=== PATIENT | female | born 1965 | race Caucasian/White ===

== ENCOUNTER 2021-06-17 04:20 | Inpatient (IN) ==
[2021-06-17] MEDS ORDERED: Azithromycin 500 MG in 0.9 % Sodium Chloride 250 ML IVPB ONE (04:33)
[2021-06-17] MEDS ORDERED: Albuterol Neb 7.5 MG, Ipratropium Neb 0.5 MG, Sodium Chloride for inhalation 9 ML IH ONE (04:33)
[2021-06-17] MEDS ORDERED: methylPREDNISolone 125 MG/2 ML VIAL IVP ONE (04:33)
[2021-06-17] MEDS ORDERED: cefTRIAXone 1,000 MG in 0.9 % Sodium Chloride Mini Bag 100 ML IVPB ONE (04:46)
[2021-06-17 05:17] LABS: Basophils # 0.1 K/mcL (0.0-0.2); Basophils % 0.7 %; Eosinophils % 0.1 %; Hematocrit 34.2 % (35.3-44.9); Hemoglobin 12.3 g/dL (11.5-15.4); Immature Granulocytes % 0.5 % (0-4); Lymphocytes # 0.7 K/mcL (0.6-4.6); Mean Corpuscular Volume 83.4 fL (83.0-100.0); Mean Platelet Volume 10.2 fL (9.4-12.4); Monocytes # 1.1 K/mcL (0.0-1.3); Monocytes % 9.1 %; Platelet Count 264 K/mcL (140-400); Red Cell Distribution Width 11.7 % (11.5-14.5); Segmented Neutrophils % 83.6 %; White Blood Count 11.9 K/mcL (4.3-11.1)
[2021-06-17 05:32] LABS: INR 1.3
[2021-06-17 05:35] LABS: Activated Partial Thrombo Time 25.7 Seconds (26.0-36.0)
[2021-06-17 05:40] LABS: Platelet Estimate Normal (Normal)
[2021-06-17] MEDS ORDERED: 0.9 % Sodium Chloride 2,000 ML IV ONE (05:41)
[2021-06-17 05:43] LABS: VBG HCO3 24 mEq/L (21-27); VBG PCO2 44 mmHg (41-51); VBG PH 7.34 pH Units (7.32-7.42); VBG PO2 29 mmHg (25-50)
[2021-06-17 05:44] LABS: Alanine Aminotransferase 17 Units/L (7-52); Alkaline Phosphatase 86 Units/L (34-104); Aspartate Amino Transferase 15 Units/L (13-39); BUN/Creatinine Ratio 38 (6-26); Bilirubin,Direct 0.5 mg/dL (0.0-0.2); Bilirubin,Indirect 0.5 mg/dL (0.0-1.0); Blood Urea Nitrogen 31 mg/dL (6-20); Calcium 8.3 mg/dL (8.6-10.3); Carbon Dioxide 23 mEq/L (23-29); Chloride 80 mEq/L (98-107); Globulin 3.1 g/dL (2.4-3.5); Glucose 150 mg/dL (70-105); Osmolality,Calculated 253 (280-300); Potassium 3.1 mEq/L (3.5-5.1); Sodium 117 mEq/L (136-145); Total Protein 6.1 g/dL (6.4-8.9); Troponin I 0.03 ng/mL (< 0.04); eGFR For African Americans > 60 (> 60); eGFR For Non-African Americans > 60 (> 60)
[2021-06-17 07:14] LABS: Influenza A PCR Negative (Negative); Influenza B PCR Negative (Negative); Resp. Syncytial Virus PCR Negative (Negative)
[2021-06-17 07:16] LABS: SARS-CoV-2 by PCR (In House) Negative (Negative)
[2021-06-17] MEDS ORDERED: Ondansetron 4 MG/2 ML VIAL IVP PRN (08:23)
[2021-06-17] MEDS ORDERED: Naloxone 0.4 MG/ML INJ IVP PRN (08:23)
[2021-06-17] MEDS ORDERED: Perflutren Lipid Microsphere 1.3 ML in 0.9 % Sodium Chloride 8.7 ML IVP PRN (08:25)
[2021-06-17 08:28] LABS: Sodium, Urine < 10.0 mEq/L
[2021-06-17] MEDS ORDERED: [UNRECOGNIZED DRUG - REMARK] PO SCH (09:00)
[2021-06-17] MEDS: Budesonide/Formoterol 160/4.5 1 PUFF INH IH SCH ×2 (09:14→23:00)
[2021-06-17] MEDS: Ipratropium/Albuterol Neb 3 ML IH SCH ×3 (09:15→23:00)
[2021-06-17 10:25] LABS: BUN/Creatinine Ratio 47 (6-26); Blood Urea Nitrogen 26 mg/dL (6-20); Calcium 7.8 mg/dL (8.6-10.3); Carbon Dioxide 21 mEq/L (23-29); Chloride 87 mEq/L (98-107); Glucose 140 mg/dL (70-105); Osmolality,Calculated 257 (280-300); Potassium 3.2 mEq/L (3.5-5.1); Sodium 120 mEq/L (136-145); eGFR For African Americans > 60 (> 60); eGFR For Non-African Americans > 60 (> 60)
[2021-06-17] MEDS ORDERED: 0.9 % Sodium Chloride 1,000 ML IVC SCH (10:30)
[2021-06-17] MEDS: OXcarbazepine 150 MG TABLET PO SCH ×2 (11:02→20:22)
[2021-06-17] MEDS: Multivit/Ca/Min/Fe/FA 1 TAB TABLET PO SCH (11:02)
[2021-06-17 13:00] LABS: Creatinine,Urine 33 mg/dL; Microalbum/Creatinine Ratio,Ur 85 mcg/mg (Less than 30); Microalbumin,Urine 28 mg/L; Protein/Creatinine Ratio,Urine 1.79 mg/mg (0.00-0.20)
[2021-06-17] MEDS: KETOTIFEN FUMARATE OP SCH ×2 (13:03→20:20)
[2021-06-17] MEDS: Fluticasone Propionate Nasal 50 MCG/SPRAY BOTTLE NS SCH (15:13)
[2021-06-17 15:42] LABS: BUN/Creatinine Ratio 49 (6-26); Blood Urea Nitrogen 22 mg/dL (6-20); Carbon Dioxide 19 mEq/L (23-29); Chloride 89 mEq/L (98-107); Glucose 136 mg/dL (70-105); Osmolality,Calculated 259 (280-300); Potassium 3.4 mEq/L (3.5-5.1); Sodium 122 mEq/L (136-145); eGFR For African Americans > 60 (> 60); eGFR For Non-African Americans > 60 (> 60)
[2021-06-17] MEDS: MethylPREDNISolone 40 MG/ML VIAL IVP SCH (16:26)
[2021-06-17] MEDS: *HR* Heparin 5,000 UNIT/ML VIAL SQ SCH ×2 (16:26→20:23)
[2021-06-17 20:07] LABS: BUN/Creatinine Ratio 39 (6-26); Blood Urea Nitrogen 18 mg/dL (6-20); Calcium 8.5 mg/dL (8.6-10.3); Carbon Dioxide 20 mEq/L (23-29); Chloride 91 mEq/L (98-107); Glucose 142 mg/dL (70-105); Osmolality,Calculated 264 (280-300); Potassium 3.2 mEq/L (3.5-5.1); Sodium 125 mEq/L (136-145); eGFR For African Americans > 60 (> 60); eGFR For Non-African Americans > 60 (> 60)
[2021-06-17] MEDS: traZODone 50 MG TABLET PO SCH (20:23)
[2021-06-18] MEDS: D5% in Water 1,000 ML IVC SCH ×2 (00:34→08:04)
[2021-06-18] MEDS: MethylPREDNISolone 40 MG/ML VIAL IVP SCH ×3 (00:35→16:23)
[2021-06-18 00:44] LABS: Hematocrit 29.5 % (35.3-44.9); Mean Corpuscular HGB Conc 36.3 g/dL (31.6-35.5); Mean Corpuscular Hemoglobin 29.9 pg (28.0-33.3); Mean Corpuscular Volume 82.4 fL (83.0-100.0); Mean Platelet Volume 10.6 fL (9.4-12.4); Platelet Count 232 K/mcL (140-400); Red Blood Count 3.58 M/mcL (3.82-4.97); Red Cell Distribution Width 11.7 % (11.5-14.5); White Blood Count 12.2 K/mcL (4.3-11.1)
[2021-06-18 00:47] LABS: Hemoglobin 10.7 g/dL (11.5-15.4)
[2021-06-18 00:51] LABS: BUN/Creatinine Ratio 41 (6-26); Blood Urea Nitrogen 16 mg/dL (6-20); Calcium 8.4 mg/dL (8.6-10.3); Carbon Dioxide 22 mEq/L (23-29); Chloride 92 mEq/L (98-107); Glucose 199 mg/dL (70-105); Osmolality,Calculated 269 (280-300); Potassium 2.9 mEq/L (3.5-5.1); Sodium 126 mEq/L (136-145); eGFR For African Americans > 60 (> 60); eGFR For Non-African Americans > 60 (> 60)
[2021-06-18] MEDS ORDERED: *HR* Metoprolol 5 MG/5 ML VIAL IVP ONE ×4 (00:52→08:35)
[2021-06-18 01:15] LABS: Lymphocytes # 1.5 K/mcL (0.6-4.6); Monocytes # 1.2 K/mcL (0.0-1.3); Neutrophils # 9.5 K/mcL (1.6-8.9); Platelet Estimate Normal (Normal)
[2021-06-18 01:33] LABS: Bilirubin,Urine Negative (Negative); Blood,Urine Small (Negative); Clarity,Urine Clear (Clear); Color,Urine Light-Yellow (Yellow); Glucose,Urine (UA) Normal (Normal); Ketones,Urine 10 mg/dL (Negative); Leukocyte Esterase,Urine Negative (Negative); Mucus,Urine Few per lpf (None-Few); Nitrite,Urine Negative (Negative); PH,Urine 6.5 pH Units (5.0-8.0); Protein,Urine Trace mg/dL (Neg-Trace); RBC,Urine 0-3 per hpf (0-3); Specific Gravity,Urine 1.006 (1.010-1.025); Squamous Epithelial Cell,Urine Few per hpf (None-Few); Urobilinogen,Urine Normal (Normal); WBC,Urine 0-3 per hpf (0-3)
[2021-06-18 02:47] LABS: Enterococcus by PCR Not Detected (Not Detect); mecA Methicillin-Resist Gene DETECTED (Not Detect); vanA/B Vancomycin-Resist Genes Not Detected (Not Detect)
[2021-06-18 02:48] LABS: Acinetobacter baumannii by PCR Not Detected (Not Detect); Candida albicans by PCR Not Detected (Not Detect); Candida glabrata by PCR Not Detected (Not Detect); Candida krusei by PCR Not Detected (Not Detect); Candida parapsilosis by PCR Not Detected (Not Detect); Candida tropicalis by PCR Not Detected (Not Detect); Enterobacter cloacae Cmplx PCR Not Detected (Not Detect); Enterobacteriaceae by PCR Not Detected (Not Detect); Escherichia coli by PCR Not Detected (Not Detect); Klebsiella oxytoca by PCR Not Detected (Not Detect); Klebsiella pneumoniae by PCR Not Detected (Not Detect); Proteus by PCR Not Detected (Not Detect); Pseudomonas aeruginosa by PCR Not Detected (Not Detect); Serratia marcescens by PCR Not Detected (Not Detect); Staphylococcus aureus by PCR DETECTED (Not Detect); Streptococcus agalactiae(B)PCR Not Detected (Not Detect); Streptococcus by PCR Not Detected (Not Detect); Streptococcus pneumoniae PCR Not Detected (Not Detect); Streptococcus pyogenes (A) PCR Not Detected (Not Detect)
[2021-06-18] MEDS: Levalbuterol Neb 1.25 MG/3 ML IH SCH ×4 (04:23→20:16)
[2021-06-18] MEDS: Ipratropium Neb 0.5 MG NEBULIZER IH SCH ×4 (04:23→20:16)
[2021-06-18 05:35] LABS: BUN/Creatinine Ratio 39 (6-26); Blood Urea Nitrogen 13 mg/dL (6-20); Calcium 8.7 mg/dL (8.6-10.3); Carbon Dioxide 24 mEq/L (23-29); Chloride 94 mEq/L (98-107); Glucose 207 mg/dL (70-105); Osmolality,Calculated 270 (280-300); Potassium 2.8 mEq/L (3.5-5.1); Sodium 127 mEq/L (136-145); eGFR For African Americans > 60 (> 60); eGFR For Non-African Americans > 60 (> 60)
[2021-06-18] MEDS: *HR* Enoxaparin 60 MG/0.6 ML SYRINGE SQ SCH ×2 (06:32→16:23)
[2021-06-18] MEDS ORDERED: Potassium Chloride 40 MEQ, Lidocaine 1% 2 ML in 0.9 % Sodium Chloride 500 ML IVPB ONE (06:55)
[2021-06-18] MEDS: Multivit/Ca/Min/Fe/FA 1 TAB TABLET PO SCH (07:53)
[2021-06-18] MEDS: Loratadine 10 MG TABLET PO SCH (07:53)
[2021-06-18] MEDS: KETOTIFEN FUMARATE OP SCH ×2 (07:54→19:09)
[2021-06-18] MEDS: OXcarbazepine 150 MG TABLET PO SCH ×2 (07:54→19:39)
[2021-06-18] MEDS ORDERED: *HR* Metoprolol 5 MG/5 ML VIAL IVP PRN (08:43)
[2021-06-18] MEDS ORDERED: Petrolatum, White OINT.PACK TP PRN (08:44)
[2021-06-18] MEDS ORDERED: hydrOXYzine pamoate 25 MG CAPSULE PO PRN (08:45)
[2021-06-18] MEDS ORDERED: cefTRIAXone 1,000 MG in 0.9 % Sodium Chloride Mini Bag 100 ML IVPB SCH (09:00)
[2021-06-18] MEDS ORDERED: Azithromycin 500 MG in 0.9 % Sodium Chloride 250 ML IVPB SCH (09:00)
[2021-06-18] MEDS: Budesonide/Formoterol 160/4.5 1 PUFF INH IH SCH ×2 (09:29→20:16)
[2021-06-18] MEDS: Gabapentin 300 MG CAPSULE PO SCH ×3 (09:33→19:39)
[2021-06-18] MEDS: Nicotine 21 MG PATCH.TD24 TD SCH (09:33)
[2021-06-18] MEDS: Fluticasone Propionate Nasal 50 MCG/SPRAY BOTTLE NS SCH (11:28)
[2021-06-18] MEDS ORDERED: D5% in Water 1,000 ML IVC SCH (12:43)
[2021-06-18] MEDS: traZODone 50 MG TABLET PO SCH (19:39)
[2021-06-19] MEDS: MethylPREDNISolone 40 MG/ML VIAL IVP SCH ×2 (00:25→08:12)
[2021-06-19 03:24] LABS: Magnesium 1.8 mg/dL (1.6-2.6)
[2021-06-19 03:30] LABS: BUN/Creatinine Ratio 43 (6-26); Blood Urea Nitrogen 15 mg/dL (6-20); Calcium 9.1 mg/dL (8.6-10.3); Carbon Dioxide 22 mEq/L (23-29); Chloride 97 mEq/L (98-107); Glucose 158 mg/dL (70-105); Osmolality,Calculated 266 (280-300); Potassium 4.5 mEq/L (3.5-5.1); Sodium 126 mEq/L (136-145); eGFR For African Americans > 60 (> 60); eGFR For Non-African Americans > 60 (> 60)
[2021-06-19] MEDS: Levalbuterol Neb 1.25 MG/3 ML IH SCH ×5 (03:45→20:16)
[2021-06-19] MEDS: Ipratropium Neb 0.5 MG NEBULIZER IH SCH ×5 (03:45→20:16)
[2021-06-19] MEDS: *HR* Enoxaparin 60 MG/0.6 ML SYRINGE SQ SCH (06:00)
[2021-06-19] MEDS: Budesonide/Formoterol 160/4.5 1 PUFF INH IH SCH ×3 (08:04→20:16)
[2021-06-19] MEDS: Nicotine 21 MG PATCH.TD24 TD SCH (08:10)
[2021-06-19] MEDS: Loratadine 10 MG TABLET PO SCH (08:10)
[2021-06-19] MEDS: OXcarbazepine 150 MG TABLET PO SCH ×2 (08:11→21:39)
[2021-06-19] MEDS: Multivit/Ca/Min/Fe/FA 1 TAB TABLET PO SCH (08:11)
[2021-06-19] MEDS: Gabapentin 300 MG CAPSULE PO SCH ×3 (08:11→21:39)
[2021-06-19] MEDS: KETOTIFEN FUMARATE OP SCH ×2 (08:12→21:39)
[2021-06-19] MEDS: Fluticasone Propionate Nasal 50 MCG/SPRAY BOTTLE NS SCH (08:12)
[2021-06-19] MEDS ORDERED: predniSONE 20 MG TABLET PO ONE (11:57)
[2021-06-19 15:59] LABS: HIV-1&2 Antibody & p24 Ag Nonreactive (Nonreactive); Hepatitis C Virus Antibody Nonreactive (Nonreactive)
[2021-06-19 16:24] LABS: Amphetamine Screen,Urine Negative ng/mL (Cutoff=1000); Barbiturate Screen,Urine Negative ng/mL (Cutoff=200); Benzodiazepines Screen,Urine Negative ng/mL (Cutoff=200); Cannabinoid Screen,Urine Negative ng/mL (Cutoff = 50); Cocaine Screen,Urine Negative ng/mL (Cutoff= 300); Opiate Screen,Urine Negative ng/mL (Cutoff=300); Phencyclidine Screen,Urine Negative ng/mL (Cutoff=25)
[2021-06-19 16:46] LABS: Thyroid Stimulating Hormone 0.809 mcIU/mL (0.340-5.600)
[2021-06-19] MEDS ORDERED: Isovue-370 500 ML BOTTLE IVP ONE (20:13)
[2021-06-19] MEDS ORDERED: Apixaban 5 MG TABLET PO SCH (21:00)
[2021-06-19] MEDS: traZODone 50 MG TABLET PO SCH (21:38)
[2021-06-20 02:09] LABS: Hematocrit 28.2 % (35.3-44.9); Hemoglobin 10.3 g/dL (11.5-15.4); Mean Corpuscular HGB Conc 36.5 g/dL (31.6-35.5); Mean Corpuscular Hemoglobin 30.1 pg (28.0-33.3); Mean Corpuscular Volume 82.5 fL (83.0-100.0); Mean Platelet Volume 10.5 fL (9.4-12.4); Platelet Count 227 K/mcL (140-400); Red Blood Count 3.42 M/mcL (3.82-4.97); Red Cell Distribution Width 12.8 % (11.5-14.5); White Blood Count 14.9 K/mcL (4.3-11.1)
[2021-06-20 02:32] LABS: BUN/Creatinine Ratio 41 (6-26); Blood Urea Nitrogen 12 mg/dL (6-20); Calcium 8.6 mg/dL (8.6-10.3); Carbon Dioxide 23 mEq/L (23-29); Chloride 96 mEq/L (98-107); Glucose 124 mg/dL (70-105); Osmolality,Calculated 265 (280-300); Potassium 4.4 mEq/L (3.5-5.1); Sodium 127 mEq/L (136-145); eGFR For African Americans > 60 (> 60); eGFR For Non-African Americans > 60 (> 60)
[2021-06-20] MEDS: Levalbuterol Neb 1.25 MG/3 ML IH SCH ×2 (03:22→09:52)
[2021-06-20] MEDS: Ipratropium Neb 0.5 MG NEBULIZER IH SCH ×2 (03:22→09:51)
[2021-06-20] MEDS ORDERED: Vancomycin 1,500 MG/265 ML IV.SOLN IVPB SCH (04:00)
[2021-06-20 06:20] LABS: ABG Base Excess -1 mEq/L (-2 to 3); ABG HCO3 23 mEq/L (21-27); ABG Oxygen Saturation 84 % (95-98); ABG PCO2 33 mmHg (35-45); ABG PH 7.44 pH Units (7.32-7.45); ABG PO2 46 mmHg (85-104); ABG TCO2 24 mEq/L (20-26)
[2021-06-20] MEDS ORDERED: *HR* LORazepam 2 MG/ML VIAL IVP ONE (06:21)
[2021-06-20] MEDS ORDERED: Levalbuterol Neb 0.63 MG/3 ML ONE (06:39)
[2021-06-20] MEDS ORDERED: 0.9 % Sodium Chloride 1,000 ML ONE (06:55)
[2021-06-20] MEDS ORDERED: *HR* FentaNYL (PF) 100 MCG/2 ML VIAL ONE (07:08)
[2021-06-20] MEDS ORDERED: FentaNYL (PF) 1,000 MCG/100 ML IV.SOLN ONE (07:08)
[2021-06-20] MEDS ORDERED: Ringers Solution, Lactated 500 ML ONE (07:29)
[2021-06-20] MEDS ORDERED: Phenylephrine 50 MG in 0.9 % Sodium Chloride 250 ML IVC SCH (07:30)
[2021-06-20] MEDS ORDERED: FentaNYL (PF) 1,000 MCG/100 ML IV.SOLN IVC SCH (07:45)
[2021-06-20] MEDS ORDERED: *HR* FentaNYL (PF) 100 MCG/2 ML VIAL IVP ONE (07:45)
[2021-06-20 07:49] LABS: ABG Base Excess -5 mEq/L (-2 to 3); ABG HCO3 26 mEq/L (21-27); ABG Oxygen Saturation 92 % (95-98); ABG PCO2 81 mmHg (35-45); ABG PH 7.11 pH Units (7.32-7.45); ABG PO2 87 mmHg (85-104); ABG TCO2 28 mEq/L (20-26); Blood Gas VT 450 cc
[2021-06-20 08:05] VITALS: BP 118/78; TEMP 99.6
[2021-06-20] MEDS ORDERED: Norepinephrine 4 MG/254 ML IV.SOLN IVC SCH (08:15)
[2021-06-20] MEDS ORDERED: *HR* Atropine Sulfate 1 MG/10 ML SYRINGE ONE (08:54)
[2021-06-20] MEDS ORDERED: *HR* EPINEPHrine 1 MG/10 ML SYRINGE ONE (08:55)
[2021-06-20] MEDS: Budesonide/Formoterol 160/4.5 1 PUFF INH IH SCH (09:52)
[2021-06-20 10:40] VITALS: PULSE 110
[2021-06-20 10:52] VITALS: O2SAT 64
[2021-06-20] MEDS ORDERED: *HR* Etomidate 20 MG/10 ML AMPUL IVP ONE (12:25)
[2021-06-20] MEDS ORDERED: *HR* Midazolam HCl 5 MG/5 ML VIAL IVP ONE (12:25)
[2021-06-20] MEDS ORDERED: Vancomycin 1,250 MG/262.5 ML IV.SOLN IVPB SCH (13:00)
[2021-06-24 08:52] LABS: HCV Quant Interpretation NOT DETECTED (Not Detected); HCV Quant Log NOT DETECTED log IU/mL
== END 2021-06-20 12:26 | disposition expired | DRG 871 ==
LOC: 2NNU 04:20 → EMEROOARM 04:20 → SUATTDRO 08:22 → 2NNU 09:12 → ICNU 06-20 07:21
PROVIDERS: ADMIT Family Medicine; ATTEND Internal Medicine